=== PATIENT | female | born 1995 | race Hispanic/Latino ===

== ENCOUNTER 2024-08-11 00:34 | Observation (INO) | payer OTHER, SELFPAY ==
[2024-08-10 18:12] VITALS: BP 121/83
[2024-08-10 18:25] LABS: Glucose - Point of Care 112 mg/dl (70-99)
[2024-08-10 18:35] VITALS: BP 121/79
[2024-08-10 19:05] LABS: Urine Albumin 1+ (Neg - Trace); Urine Bilirubin Negative (Negative); Urine Character Clear (Clear); Urine Color Yellow; Urine Glucose Negative (Negative); Urine Ketone Negative (Negative); Urine Leukocyte 3+ (Negative); Urine Nitrite Negative (Negative); Urine Occult Blood 2+ (Negative); Urine Urobilinogen Negative (Neg - 1+); Urine pH 6.5 (5.0-9.0)
[2024-08-10 19:11] LABS: Amphetamines Negative (Negative); Barbiturates Negative (Negative); Benzodiazepines Negative (Negative); Buprenorphine Negative (Negative); Cocaine Negative (Negative); Marijuana Negative (Negative); Methadone Negative (Negative); Methamphetamines Negative (Negative); Opiates Negative (Negative); Phencyclidine Negative (Negative); Tricyclic Antidepressants Negative (Negative)
--- NOTE | 2024-08-10 19:21 | ED.GENMED ---
History of Present Illness
General
Chief Complaint: Change in Mental Status
Source: patient and family
Exam Limitations: none
Time Seen by Provider: 08/10/24 19:09
Nursing documentation reviewed up to this point in time: agreed with
History of Present Illness
History of Present Illness:
28-year-old female with no reported chronic medical issues who presents to the ER with her family for evaluation of headache and transient speech disturbance and numbness. Patient reports that she has been having headaches ongoing for about a week.
She describes a pressure sensation in the front of the head. No clear triggering or relieving factors noted. Tonight patient was watching Netflix on her phone when she began to feel somewhat anxious and then had a feeling of numbness in the right
arm as well as in the face bilaterally. Apparently a coworker came into the room and patient had trouble speaking�apparently was making noise but it sounded like gibberish. Patient tried to text a family member but again the message was gibberish.
It sounds like the total duration of the symptoms was 20 to 30 minutes and then completely resolved. She now has residual headache but no other neurologic complaints. She did not have any weakness in the extremities. She did not have any loss of
vision or visual aura. She denies any neck pain or stiffness. Has not had any recent fever. She denies any trauma to the head. She denies having had similar symptoms in the past.
Review of Systems
Review of Systems
All Other Systems: ROS reviewed and negative except as documented in HPI and ROS
Constitutional: Denies fever
Respiratory: Denies trouble breathing
Cardiac: Denies chest pain
ABD/GI: Denies abdominal pain, nausea or vomiting
: Denies flank pain
Musculoskeletal: Denies neck pain or back pain
Neurological: Reports headache, numbness and other (Speech disturbance); Denies dizzy or weakness
Phy Exam
Physical Exam
Physical Exam:
General: Awake, alert, oriented x3; no acute distress
Head: Normocephalic, atraumatic
Eyes: Conjunctiva normal, EOMI, pupils equal round and reactive to light bilaterally
Throat: Airway intact, handling secretions
Neck: Trachea midline, supple without meningismus
Lungs: Clear to auscultation bilaterally, no wheezing, rales, rhonchi
Heart: Regular rate and rhythm, no murmurs, gallops, or rubs
Abd: Soft, non distended, nontender
Neuro: Cranial nerves intact 2 through 12, speech is fluid without dysarthria or aphasia, no limb ataxia, motor and sensory intact in all extremities
Skin: no rash
Extremities: Warm and well-perfused, no edema
Scores
Heart Failure Risk
Heart Failure Risk Score: Not Applicable
Heart Score for Chest Pain Patients
STEMI patient?: Not applicable
Withdrawal Assessment of Alcohol
Withdrawal Assessment Completed?: Not applicable
Course
Orders/Labs/Results
Orders:
Orders
08/10/24 18:22
HCG, Urine Qualitative Screen Urgent
Date Specimen was Collected: 08/10/24
Time Specimen was Collected: 18:19
Comment: ADD ON
Urinalysis Reflex To Culture Urgent
Date Specimen was Collected: 08/10/24
Time Specimen was Collected: 18:19
Urine Drug Abuse Screen Urgent
Date Specimen was Collected: 08/10/24
Time Specimen was Collected: 18:19
Urine Microscopic Reflex Cult Urgent
Urine Culture Urgent
RUDOLPH Source: U
Specimen Description:
Date Specimen was Collected: 08/10/24
Time Specimen was Collected: 18:19
08/10/24 19:10
Add On- LAB Urgent
Tests Added?: urine HCG qual
08/10/24 19:20
CT Head & Neck Angio W/wo IV Urgent
Comment:
Reason For Exam: headache, right sided numbness/weakness, aphasia
08/10/24 19:21
Electrocardiogram (*1) Urgent
Reason for Study: TIA/Stroke
EKG- Treatment ONCE
08/10/24 19:27
0.9% Sodium Chloride 1000 ml [Nss] 1,000 ml IV BOLUS
Diphenhydramine [Benadryl] 25 mg IV NOW STA
Ketorolac [Toradol] 15 mg IV NOW STA
Metoclopramide [Reglan] 10 mg IV NOW STA
08/10/24 19:54
Complete Blood Count/With Diff Urgent
Comprehensive Metabolic Panel Urgent
08/10/24 23:27
NEUROLOGY CONSULT Urgent
Consulting Provider: Selena Elmore
Was physician already notified: Yes
CRP [C-Reactive Protein] Urgent
ESR [Erythrocyte Sed Rate] Urgent
Lyme Progressive Urgent
Magnesium Urgent
TSH Reflex To Free T4 Urgent
Abnormal Lab Results
08/10/24 08/10/24 08/10/24
18:22 18:23 19:54
Hct 36.6 L %
(37.0-47.0)
Absolute Neuts (auto) 7.3 H 10^3/uL
(1.4-6.5)
Lymphocytes % 19.3 L %
(20.5-51.1)
Ur Occult Blood Reflex 2+ A
(Negative)
Leukocyte Esterase Rfl 3+ A
(Negative)
Urine WBC (Reflex) 16-20 A /HPF
(0-5)
Urine Bacteria (Reflex) Many A
(Negative)
Urine Albumin (Reflex) 1+ A
(Neg - Trace)
POC Glucose 112 H mg/dl
(70-99)
08/10/24 19:54
08/10/24 19:54
Vital Signs
Initial and Last Documented VS:
Initial Vital Signs
Temp Pulse Resp BP Pulse Ox
37.3 C 82 16 121/83 100
08/10/24 18:12 08/10/24 18:12 08/10/24 18:12 08/10/24 18:12 08/10/24 18:12
Last Documented Vital Signs
Temp Pulse Resp BP Pulse Ox
37.3 C 85 12 121/79 100
08/10/24 18:12 08/10/24 18:45 08/10/24 18:45 08/10/24 18:35 08/10/24 18:45
MDM/Problems Addressed
Differential Diagnosis Includes:
Complex migraine, brain mass, brain bleed, TIA/stroke, MS, panic attack
MDM/Problems Addressed:
28-year-old female with left no reported chronic medical issues presents for evaluation of headaches over the past week and tonight transient speech disturbance and numbness as described above. Vitals and exam as above�while she has residual
headache she reports neurologic symptoms have resolved otherwise. She had a urinalysis in triage which appears contaminated, UDS was negative. Plan to place an IV send basic labs. Sent for CTA head and neck. Will discuss with neurology pending
initial evaluation. Will plan to treat headache with Toradol/Reglan/Benadryl/fluids. At this point clinical suspicion is for complex migraine.
Labs reviewed: CBC and CMP unremarkable. CTA head and neck negative for any acute abnormalities. Clinical reassessment headache improved but not resolved�went from 7/10 intensity to 3/10 intensity. Case discussed with neurology�recommended
admission for MRI, added ESR/CRP, Lyme's, magnesium level. They will consult on patient. Case discussed with hospitalist for admission.
*Radiology
Radiology exam reviewed: radiology read reviewed
*Pulse Oximetry
Patient hypoxic: no (100%)
*Critical Care Note
Total Time (30-74mins, 75-104mins- exclusive of procedures): Not Applicable
Data Reviewed
Source: patient and family
Patient Management
Discussion with other providers: Hospitalist (Discussed with hospitalist) and Forging Engineer (Discussed with neurology)
Escalation/DeEscalation of care consider admission/obs:
Admission indicated
ED Attending Note
-
Portions of this chart may have been created with voice recognition software.� Occasional wrong word or��sound alike� substitutions may have occurred due to the inherent limitations of voice recognition software.
Discharge Plan
Departure
Patient Disposition: Admit
Date of Disposition: 08/10/24
Time of Disposition: 23:30
Admit to doctor: Toy
Presentation/result/management discussed w/ accepting MD/DO: Hospitalist
Discharge Problem:
Speech disturbance, Extremity numbness, Headache
Referrals:
NONE,* [Family Provider, Internal Medicine]
Interventions
Interventions:
*Risk Screen - Suicide Last Done: 08/10/24 18:12
*General Assessment Last Done: 08/10/24 19:45
*Neglect/Abuse Screening Last Done: 08/10/24 18:12
*ED COVID-19 Vaccine History Last Done: 08/10/24 19:45
ED- Neurological Assessment Last Done: 08/10/24 19:01
ED- Cardiac Assessment Last Done: 08/10/24 19:01
Discharge Date and Time
Print Language: TAMAZIGHT
[2024-08-10 19:25] LABS: Urine Squamous Cell 26-30 /LPF (Few)
[2024-08-10 19:26] LABS: Urine Bacteria Many (Negative); Urine Red Blood Cell 0-2 /HPF (0-2); Urine Urothelial Cell 0-2 /LPF (FEW); Urine White Cell 16-20 /HPF (0-5)
[2024-08-10 19:33] LABS: HCG, Urine Qualitative Screen Negative
[2024-08-10] MEDS: NSS 1000 IV (19:52)
[2024-08-10] MEDS: TORADOL 15 MG IV (19:53)
[2024-08-10] MEDS: REGLAN 10 MG IV (19:53)
[2024-08-10] MEDS: BENADRYL 25 MG IV (19:53)
[2024-08-10 20:10] LABS: % Basophils 0.4 % (0-2); % Eosinophils 1.4 % (0-6); % Immature Granulocytes 0.3 % (0-0.5); % Lymphocytes 19.3 % (20.5-51.1); % Monocytes 4.3 % (1.7-9.3); % Neutrophils 74.3 % (42.2-75.2); Absolute Eosinophils 0.1 10^3/uL (0-0.7); Absolute Lymphocytes 1.9 10^3/uL (1.2-3.4); Absolute Monocytes 0.4 10^3/uL (0.1-0.6); Absolute Neutrophils 7.3 10^3/uL (1.4-6.5); Hematocrit 36.6 % (37.0-47.0); Hemoglobin 12.7 g/dL (12.0-16.0); Mean Corp Hgb Conc. 34.7 g/dL (33.0-37.0); Mean Corpuscular Hgb 28.6 pg (27.0-31.0); Mean Corpuscular Volume 82.4 fL (81.0-99.0); Mean Platelet Volume 9.9 fL (7.4-10.4); Nucleated Red Blood Cells % 0 %; Platelet Count 335 10^3/uL (130-400); Red Blood Cell Count 4.44 10^6/uL (4.20-5.40); Red Cell Dist. Width 12.4 % (11.5-14.5); White Blood Cell Count 9.8 10^3/uL (4.8-10.8)
[2024-08-10 20:32] LABS: ALT (SGPT) 25 U/L (0-35); AST (SGOT) 26 U/L (14-36); Albumin 4.1 g/dl (3.5-5.0); Alkaline Phosphatase 55 U/L (38-126); Blood Urea Nitrogen 11 mg/dl (7-17); Calcium 9.7 mg/dl (8.4-10.2); Carbon Dioxide 25 mmol/L (22-30); Chloride 106 mmol/L (98-107); Estimated Creatinine Clearance 71 ml/min; Glucose 91 mg/dl (70-99); Sodium 137 mmol/L (135-145); Total Bilirubin 0.6 mg/dl (0.2-1.3); eGFR > 60.00
--- NOTE | 2024-08-11 00:11 | HPS.HSE ---
Family Physician
-
Family Physician: * NONE
Chief Complaint
-
Aphasia / Numbness
History of Present Illness
Patient is a 28y F with no significant PMH who presents to ED complaining of episode of aphasia and numbness this evening. History obtained from patient and family at bedside / via phone. Patient was watching TV on her phone around 5:30 PM when
she noted a 'nervous feeling' in her chest and up into her neck. She felt a numbness and heaviness in the R arm. She felt a tingling sensation in both sides of her face. Her employer came into the room and spoke with her, but the patient could
not understand what he was saying. She then texted a friend - and that text was reportedly composed of 'gibberish'.
These symptoms lasted for about 15-20 minutes and then resolved. She spoke with family who recommended that she go to the ED for evaluation.
Here in the ED, patient states that she feels back to baseline.
She denies any prior history of similar symptoms. No recent illness, fevers / chills, etc.
She has had headaches for the past week or so - which is unusual for her. She had been taking Tylenol at home with minimal improvement in the headaches.
Upon arrival to the ED she stated that her headache was 8/10. She was given 'migraine cocktail' and her headache is currently improved.
She has no history of migraines / denies frequent headaches.
Medical History
Past Medical History
Past Medical History: Reports Other
Additional Past Medical History:
Recurrent UTIs
Past Surgical History: Reports Other
Additional Past Surgical History:
IUD Placement
Breast Biopsy (benign)
Social History
Tobacco: Non-smoker
Alcohol: None
Drug: None
Family History
Family History: Other (Mother: Lupus Family history of cancer in multiple family members. No family history of premature CVA / CAD.)
Allergies / Home Medications
Allergies reflects when Allergies were last updated in [employer].
Home Medications with original date entered in [employer]
Allergy/Medication List:
Allergies
Allergy/AdvReac Type Severity Reaction Status Date / Time
No Known Allergies Allergy Unverified 08/10/24 18:08
Home Medications
No Meds [No Current Medications] 08/11/24
Review of Systems
-
History Source: Patient
A 12 point ROS was completed and negative except as noted: Yes
Constitutional: Denies Fever or Chills
Respiratory: Denies Cough or Trouble Breathing
Cardiac: Denies Chest Pain or Palpitations
Abdomen/GI: Denies Abdominal Pain, Nausea, Vomiting or Diarrhea
: Denies Dysuria, Frequency or Flank Pain
Musculoskeletal: Denies Joint Pain or Edema
Neurological: Reports Headache; Denies Dizzy, Weakness or Numbness
Psych: Denies Depression or Anxiety
Physical Exam
Vital Signs
Vital Signs
Temp Pulse Resp BP Pulse Ox
99.2 F 85 12 121/79 100
08/10/24 18:12 08/10/24 18:45 08/10/24 18:45 08/10/24 18:35 08/10/24 18:45
Physical Exam
General: Other (28y F in no distress.)
HEENT: Moist mucous membranes and PERRLA
Respiratory: Clear; No Wheezes, Rales or Rhonchi
Cardiac: S1/S2 and Regular Rhythm; No Murmur
GI: Soft, Non Tender, Non Distended and Normal Bowel Sounds
Musculoskeletal: No Clubbing, No Cyanosis and No Edema
Neuro: AO x 3 and Nonfocal/grossly intact
Laboratory Results
-
08/10/24 19:54
08/10/24 19:54
Laboratory Results
Total Bilirubin 0.6 mg/dl (0.2-1.3) 08/10/24 19:54
AST 26 U/L (14-36) 08/10/24 19:54
ALT 25 U/L (0-35) 08/10/24 19:54
Alkaline Phosphatase 55 U/L (38-126) 08/10/24 19:54
Impression/Plan
-
A/P: Patient is a 28y F with no significant PMH who presents to ED for evaluation of 15-20 minute episode of aphasia, facial numbness and RUE numbness / weakness.
Global Aphasia
RUE Numbness / Weakness
Facial Numbness
- Observe overnight for further evaluation and treatment.
- Currently symptom-free / back at baseline.
- ? CVA / TIA versus complex migraine versus other.
- CT / CTA done in the ED was unremarkable.
- Check MRI in the AM.
- Neurology evaluation for additional recommendations.
- Monitor for new / recurrent symptoms overnight.
DVT Prophylaxis: SCDs
Code Status: Full
[2024-08-11 00:35] LABS: Erythrocyte Sed Rate 20 mm/hour (0-20)
[2024-08-11 00:37] VITALS: BP 113/64; BMI 24.6
[2024-08-11 00:40] LABS: Magnesium 1.8 mg/dl (1.6-2.3)
[2024-08-11] MEDS: TYLENOL 650 MG PO (00:59)
[2024-08-11 04:00] VITALS: BP 95/49
--- NOTE | 2024-08-11 05:00 | PTCARENOTE ---
Received patient from ED at approx 0040. Patient ambulated without assistance from stretcher to bed. AAA x 3. Oriented to room. Call johnson in reach. Uncle in room with patient.
--- NOTE | 2024-08-11 05:13 | DOWNTIME ---
Addendum entered by May Pak RN 08/11/24 14:16:
Downtime was 08/11/2024 from 0100 to 08/11/2024 at 0415
Original Note:
There was a [employer] Downtime on 08/10/2024 from 0100 to 08/11/2024 at 0415. Downtime documentation of patient's care, including medication administrations, has been reconciled in the electronic record per guidelines. Refer to the
patient's paper chart under the miscellaneous tab to see printed paper medication records and downtime forms.
[2024-08-11 06:48] LABS: Hemoglobin 11.2 g/dL (12.0-16.0); Mean Corpuscular Hgb 28.9 pg (27.0-31.0); Mean Corpuscular Volume 82.5 fL (81.0-99.0); Mean Platelet Volume 9.8 fL (7.4-10.4); Platelet Count 275 10^3/uL (130-400); Red Blood Cell Count 3.88 10^6/uL (4.20-5.40); Red Cell Dist. Width 12.5 % (11.5-14.5); White Blood Cell Count 7.6 10^3/uL (4.8-10.8)
[2024-08-11 07:02] LABS: C-Reactive Protein < 5.00 mg/L (0.0-10.00)
[2024-08-11 07:18] VITALS: BP 96/49
[2024-08-11 07:18] LABS: Blood Urea Nitrogen 9 mg/dl (7-17); Calcium 8.6 mg/dl (8.4-10.2); Carbon Dioxide 21 mmol/L (22-30); Chloride 113 mmol/L (98-107); Estimated Creatinine Clearance 80 ml/min; Glucose 97 mg/dl (70-99); HDL Cholesterol 36 mg/dl; LDL Cholesterol, Calculated 91 mg/dl; Potassium 3.7 mmol/L (3.5-5.1); Sodium 140 mmol/L (135-145); Total Cholesterol 140 mg/dl (50-199); Triglyceride 68 mg/dl (10-149); Very Low Density Lipoprotein 13 mg/dl (0-30); eGFR > 60.00
[2024-08-11 07:33] LABS: TSH Reflex To Free T4 1.81 uIU/ml (0.47-4.68)
--- NOTE | 2024-08-11 07:49 | CON.NEURO ---
Consultation
Order
Date of Consultation: 08/11/24
Requesting Provider: Christian Yeager DO
Reason for Consult: Numbness
Neurology Consultation Note.
Healthcare Liaison ID: [id number].
HPI: This is a 28-year-old RH woman who presented to [facility] on 08/10/2024 with sensory and language deficits.
Ms. Rehman reports that she suddenly began experiencing what felt like an anxiety attack, with pressure in her throat and chest. She attempted to relax but was unable to calm down. Subsequently, her right arm became numb, followed by numbness in
her face, lasting approximately 15 minutes. During this episode, she had difficulty understanding her boss when he spoke to her. She also experienced problems with word-finding and writing, noting that when she tried to message a friend about her
symptoms, she wrote words incorrectly and had trouble remembering names.
Ms. Rehman denies any visual changes but mentions she couldn't concentrate on the television and was not fully aware of her surroundings. She reports a headache during the episode. After consulting with her cousin and a nurse friend, she was
advised to seek immediate medical attention.
The patient reports a history of persistent headaches in the days leading up to this event, which were not relieved by Tylenol. She describes her typical headache pain as a 5 out of 10 in severity, noting that it worsens with eye movement, coughing,
or sudden movements. She denies any recent head trauma or medication changes.
Since arriving at the hospital, Ms. Rehman has not experienced recurrent numbness or anxiety, but continues to have a headache.
ER VS: 121/83-95/49, 82, afebrile
EKG:NSR, QTc Int : 381 ms
PDMP:none
Labs: Normal WBCs, sodium, glucose, calcium, TSH, ESR, CRP, hemoglobin 12.7�11.2, magnesium�1.8, U tox negative; UA�positive for leukocyte esterase 3+, WBCs 16�20.
CT head wo contrast�unremarkable
CTA head/neck�right hilar lymphadenopathy.
PMH:CYNDI
PSH: Breast biopsy
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
FH: mother�SLE, Father�diabetes, liver disease
All: NKDA
General: Positive for weight loss.
HEENT: Positive for headache. Negative for vision changes.
Eyes: Negative. Negative for photophobia, pain and visual disturbance.
Respiratory: Negative for cough, choking and shortness of breath.
Cardiovascular: Positive for chest pressure.
Gastrointestinal: Negative for abdominal pain and vomiting.
Endocrine: Negative. Negative for cold intolerance.
Genitourinary: Negative for dysuria, flank pain and urgency.
Musculoskeletal: Negative for back pain, gait problem, neck pain and neck stiffness.
Skin: Negative for rash.
Allergic/Immunologic: Negative. Negative for immunocompromised state.
Neurological: Positive headache, transient right arm numbness, facial numbness, difficulty concentrating, language dysfunction, and memory issues.
Psychiatric: Positive for anxiety.
General: Well developed. In no acute distress.
Cardio: Regular rate and rhythm without murmur. Extremities are without cyanosis or edema.
Neuro:
Mental Status: Alert, oriented to person, place, and date. Normal attention and recall. Good fund of knowledge. Follows complex requests across the midline. Comprehension, naming, and repetition intact. 3.
Cranial Nerves: Pupils are equally round and reactive to light. EOMs full. Visual stanton full to confrontation. No ptosis. No nystagmus. V1-V3 intact to light touch and pinprick bilaterally, symmetric. Face symmetric. Normal hearing AU. The
palate elevated well. SCMs and traps 5/5. Tongue midline. No dysarthria.
Motor: Normal bulk and tone. No pronator or arm drift. Strength 5/5 throughout. No clonus.
Reflexes: 3+ throughout the upper extremities and 3+knees. 3/2 in AJs. Plantar responses flexor bilaterally. Neg Treviño's BL
Sensory: Normal pinprick, vibration and JPS.
Coordination: No dysmetria or tremor.
Gait: deferred
Assessment and Plan:
I. Migraine with aura versus TIA
II. CYNDI
III. Right hilar lymphadenopathy.
-Continue Telemetry monitoring
-ASA 81 mg QD
-Hematology consult for thrombophilia
-Lipitor 40 mg QHS.
-Please check LDL, JUNAID
-IV Toradol 30 mg, Reglan 10 mg, Benadryl 25 mg Q8h PRN for moderate to severe headache.
-DVT prophylaxis.
I personally reviewed all radiology and labs along with past medical records pertinent to current medical problems. Total time spent in patient care is 60 minutes.
Thank you for allowing us to participate in the care of this patient. We will continue to follow. Please do not hesitate to contact us with any questions or concerns.
Subjective/Objective
Subjective Data
Date of Service: August 11, 2024
Objective Data
Vital Signs
Temp Pulse Resp BP Pulse Ox
36.8 C 75 20 95/49 99
08/11/24 04:00 08/11/24 04:00 08/11/24 04:00 08/11/24 04:00 08/11/24 04:00
Lab Results
08/11/24 06:29
08/11/24 06:29
Sodium 140 mmol/L (135-145) 08/11/24 06:29
Potassium 3.7 mmol/L (3.5-5.1) 08/11/24 06:29
BUN 9 mg/dl (7-17) 08/11/24 06:29
Glucose 97 mg/dl (70-99) 08/11/24 06:29
Calcium 8.6 mg/dl (8.4-10.2) 08/11/24 06:29
LDL Cholesterol, Calc 91 mg/dl 08/11/24 06:29
Ur Buprenorphine Negative (Negative) 08/10/24 18:22
Patient Allergies
No Known Allergies Allergy (Unverified 08/10/24 18:08)
Medications
-
Active Medications
Generic Name Dose Route Start Last Admin
Trade Name Freq PRN Reason Stop Dose Admin
Acetaminophen 650 mg 08/11/24 00:37 08/11/24 00:59
Acetaminophen 325 Mg Tablet PO 09/08/24 00:36 650 mg
Q4HPRN PRN Administration
Mild Pain / Temp > 101
Aspirin 81 mg 08/11/24 08:00
Aspirin 81 Mg Chewable Tablet PO 09/08/24 07:59
DAILY BERNADETTE
Sodium Chloride 0 flush 08/11/24 01:00
Sodium Chloride 0.9% (Flush) Syringe IV 09/08/24 00:59
PER PROTOCOL BERNADETTE
Home Medications
�Medication �Instructions �Recorded
No Meds [No Current Medications] 08/11/24
Vital Signs and Labs
-
Vital Signs and Labs:
Vital Signs
Temp Pulse Resp BP Pulse Ox
36.8 C 75 20 95/49 99
08/11/24 04:00 08/11/24 04:00 08/11/24 04:00 08/11/24 04:00 08/11/24 04:00
Lab Results
08/11/24 06:29
08/11/24 06:29
Sodium 140 mmol/L (135-145) 08/11/24 06:29
Potassium 3.7 mmol/L (3.5-5.1) 08/11/24 06:29
BUN 9 mg/dl (7-17) 08/11/24 06:29
Glucose 97 mg/dl (70-99) 08/11/24 06:29
Calcium 8.6 mg/dl (8.4-10.2) 08/11/24 06:29
LDL Cholesterol, Calc 91 mg/dl 08/11/24 06:29
Ur Buprenorphine Negative (Negative) 08/10/24 18:22
Medications
-
Medications:
Generic Name Dose Route Start Last Admin
Trade Name Freq PRN Reason Stop Dose Admin
Acetaminophen 650 mg 08/11/24 00:37 08/11/24 00:59
Acetaminophen 325 Mg Tablet PO 09/08/24 00:36 650 mg
Q4HPRN PRN Administration
Mild Pain / Temp > 101
Aspirin 81 mg 08/11/24 08:00
Aspirin 81 Mg Chewable Tablet PO 09/08/24 07:59
DAILY BERNADETTE
Sodium Chloride 0 flush 08/11/24 01:00
Sodium Chloride 0.9% (Flush) Syringe IV 09/08/24 00:59
PER PROTOCOL BERNADETTE
Home Medications
-
Home Medications
No Meds [No Current Medications] 08/11/24
[2024-08-11 09:51] VITALS: BP 106/65; PULSE 73; O2SAT 100
[2024-08-11 09:52] LABS: Glycohemoglobin (HgbA1c) 5.3 % (4.0-5.6)
--- NOTE | 2024-08-11 10:02 | PTOTSP ---
pt currently requires supervision to no assistance to complete simple ADLs, functional transfers, ambulation. pt demonstrates good ROM, strength, coordination of BUEs, vision intact. no acute OT needs identified at this time, will sign off.
[2024-08-11 11:51] VITALS: BP 92/50
[2024-08-11] MEDS: LOW STRENGTH ASPIRIN 81 MG PO (12:35)
[2024-08-11 13:06] LABS: D-Dimer < 0.27 ug/mlFEU (0.00-0.50)
--- NOTE | 2024-08-11 14:33 | CM ---
CM reviewed chart, patient seen bedside with aunt, initial assessment completed. Patient resides with her Aunt and Uncle, is independent with ADLs/IADLs. Patient confirms she does not have insurance or PCP, will provide [facility]
information, [facility], voicemail left regarding patient who is uninsured. Patient denies needs at this time. CM will continue to follow for all discharge planning needs.
Plan; home with family
[2024-08-11 15:25] VITALS: BP 104/59
--- NOTE | 2024-08-11 17:38 | W.DS.TRANS ---
DC Summary - Seam Closer
-
Discharge Instructions:
Discharge Diagnosis/Procedures Migraine with aura.
Diet Regular
Instructions:
Stand-Alone Forms:
Changes to Home Medications: Yes
Discharge Medications:
DC Medications w/original date entered in [employer]
aspirin 81 mg chewable tablet 81 mg PO DAILY #30 tabs 08/11/24
Home Medication Changes
ASA
Pending Results: No
[2024-08-12 13:28] LABS: Lyme Antibody Screen, EIA Negative (Negative)
== END 2024-08-11 20:24 | disposition home or self-care (01) ==
LOC: 4 WEST ACU 00:34
PROVIDERS: Emergency Medicine; ADMITTING PHYSICIAN Hospitalist; ATTENDING PHYSICIAN Internal Medicine; CONSULT PHYSICIAN Psychiatry & Neurology Neurology; EMERGENCY PHYSICIAN Emergency Medicine
DX: G43.109 Migraine with aura, not intractable, without status migrainosus (principal); R41.82 Altered mental status, unspecified; R20.0 Anesthesia of skin; R47.9 Unspecified speech disturbances; R20.2 Paresthesia of skin; R47.01 Aphasia; R53.1 Weakness; F41.1 Generalized anxiety disorder; R59.0 Localized enlarged lymph nodes; I49.8 Other specified cardiac arrhythmias; Z83.3 Family history of diabetes mellitus; Z87.440 Personal history of urinary (tract) infections; Z79.899 Other long term (current) drug therapy
CPT/HCPCS: 70496; 70498; 70553; 71046; 80048; 80053; 80061; 80306; 81003; 81015; 81025; 82962; 83036; 83735; 84443; 85025; 85027; 85379; 85652; 86140; 86618; 87086; 93005; 96361; 96374; 96375; 97161; 97166; 99285; A9575; G0378; Q9967